=== PATIENT | female | born 1960 | race Caucasian/White ===

== ENCOUNTER 2022-06-17 09:17 | Emergency (ER) | payer SELFPAY ==
[~2022-06-17] VITALS: Ht 160 cm; Wt 53.2 kg
[2022-06-17 09:51] VITALS: BP 148/79
[2022-06-17] MEDS ORDERED: HYDROcodone-ACET 5/325MG TAB PO ONE (10:00)
[2022-06-17] MEDS ORDERED: IBUP800T27 PO (10:50)
[2022-06-17] MEDS ORDERED: METH750T22 PO (10:50)
== END 2022-06-17 11:03 | disposition home or self-care (01) ==
LOC: ER 09:17
DX: S20.20XA Contusion of thorax, unspecified, initial encounter (principal); Z98.890 Other specified postprocedural states; W18.39XA Other fall on same level, initial encounter; Y93.89 Activity, other specified; Y92.89 Other specified places as the place of occurrence of the external cause; Y99.8 Other external cause status
CPT/HCPCS: 71101